=== PATIENT | male | born 1965 | race Hispanic/Latino ===

== ENCOUNTER 2021-08-07 07:47 | Day surgery (SDC) | payer MEDICARE ==
[~2021-08-07 07:47] MED LIST: MIDAZOLAM 2 MG/2 ML INJ IV NR; SODIUM CHLORIDE 0.9% 1000 ML 1,000 ML IV SCH; ceFAZolin/STERILE WATER 2 GM/20 ML SYRINGE IV NR; fentaNYL 100 MCG/2 ML INJ IV PRN
[2021-08-07] MEDS ORDERED: HEPARIN 10,000 UNIT/1 ML VIAL IV NR (08:45)
--- NOTE | 2021-08-07 08:45 | Anesthesia Day of Surgery ---
Anesthesia Day of Surgery - Day of Surgery Patient Examined: Yes Patient H&P Reviewed: Yes Patient is NPO: Yes Beta Blockers: Yes
--- NOTE | 2021-08-07 08:45 | Anesthesia Consultation ---
Anesthesia Consult and Med Hx Date of service: 08/07/21 - Airway Anesthetic Teeth Evaluation: Good ROM Head & Neck: Adequate Mental/Hyoid Distance: Adequate Mallampati Class: Class III Intubation Access Assessment: Possibly Difficult - Pre-Operative Health Status ASA Pre-Surgery Classification: ASA3 Proposed Anesthetic Plan: MAC Nerve Block: supraclavicular - Pulmonary Hx Smoking: Yes (07/08 PPD) Hx Respiratory Symptoms: No Hx Sleep Apnea: No - Cardiovascular System Hx Hypertension: Yes (took all antihypertensives this morning) Hx Heart Attack/AMI: No Hx Percutaneous Transluminal Coronary Angioplasty (PTCA): No Hx Peripheral Vascular Disease: Yes (took ASA/plavix this morning) - Central Nervous System CVA: No - Endocrine Hx End Stage Renal Disease: Yes (last HD 08/06/21) Hx Liver Disease: No Hx Non-Insulin Dependent Diabetes: Yes Hx Hypothyroidism: Yes - Additional Comments Anesthesia Medical History Comments: No hx anesthetic complications.
[2021-08-07 08:46] LABS: Hematocrit 30.7 % (35.5-45.6); Hemoglobin 9.8 gm/dl (11.8-15.2); Mean Corpuscular HGB Conc 32 % (32-34); Mean Corpuscular Volume 91 fl (84-94); Platelet Count 167 K/mm3 (140-440); Red Blood Count 3.39 M/mm3 (3.65-5.03); Red Cell Distribution Width 15.7 % (13.2-15.2)
[2021-08-07 08:58] LABS: Calcium 9.2 mg/dL (8.4-10.2)
[2021-08-07] MEDS ORDERED: BUPIVACAINE/PF (0.25%) 2.5 MG/ML 30 ML VIAL INFILTRATI ONE (09:48)
[2021-08-07] MEDS ORDERED: LIDOCAINE (1%) 10 MG/1 ML VIAL 20 ML MDV ONE (11:43)
[2021-08-07] MEDS ORDERED: HEPARIN 10,000 UNITS/10 ML VIAL ONE (11:43)
[2021-08-07] MEDS ORDERED: rifAMPin 600 MG VIAL ONE (11:43)
[2021-08-07] MEDS ORDERED: BUPIVACAINE/PF (0.5%) 5 MG/1 ML 30 ML VIAL INFILTRATI ONE ×2 (11:43→13:13)
[2021-08-07] MEDS ORDERED: SODIUM CHLORIDE 0.9% 500 ML 500 ML ONE (11:44)
[2021-08-07] MEDS ORDERED: SODIUM CHLORIDE 0.9% 250ML 250 ML ONE (11:44)
[2021-08-07] MEDS ORDERED: HYDROmorphone 1 MG/1 ML INJ ONE (12:05)
[2021-08-07] MEDS ORDERED: propofoL 200 MG/20 ML VIAL IV ONE ×2 (12:05→13:24)
[2021-08-07] MEDS ORDERED: LIDOCAINE MPF (2%) 20 MG/1 ML VIAL 5 ML ONE (12:31)
[2021-08-07] MEDS ORDERED: MIDAZOLAM 2 MG/2 ML INJ ONE (12:32)
[2021-08-07] MEDS ORDERED: SODIUM CHLORIDE 0.9% 250 ML IVPB IV ONE (12:55)
[2021-08-07] MEDS ORDERED: SODIUM CHLORIDE 0.9% IRR 1,500 ML BOTTLE IR ONE (12:55)
[2021-08-07] MEDS ORDERED: rifAMPin 600 MG VIAL IV ONE (12:55)
[2021-08-07] MEDS ORDERED: HEPARIN 10,000 UNITS/10 ML VIAL IV ONE (12:55)
[2021-08-07] MEDS ORDERED: SODIUM CHLORIDE 0.9% 500 ML IVPB IV ONE (12:55)
[2021-08-07] MEDS ORDERED: ONDANSETRON 4 MG/2 ML INJ ONE (14:09)
[2021-08-07] MEDS ORDERED: HEPARIN 10,000 UNIT/1 ML VIAL IV ONE (14:16)
--- NOTE | 2021-08-07 14:21 | Short Stay Summary ---
Short Stay Documentation Date of service: 08/07/21 Narrative H&P: See H&P - History H&P: obtained from office - Allergies and Medications Current Medications: Allergies No Known Allergies Allergy (Verified 08/02/21 11:52) Home Medications Medication Instructions Recorded Confirmed Last Taken Type Clopidogrel [Plavix] 75 mg PO QDAY 08/02/21 08/02/21 Unknown History Famotidine [Acid-Pep] 20 mg PO DAILY 08/02/21 08/02/21 Unknown History Folic Acid/Vit B Complex and C 800 mcg PO DAILY 08/02/21 08/02/21 Unknown History [Dialyvite 800 Chewable Wafer] HYDROcodone/APAP 10-325 [[place] 1 each PO Q6HR PRN 08/02/21 08/02/21 Unknown History 10/325] Levothyroxine [Synthroid] 50 mcg PO QAM 08/02/21 08/02/21 Unknown History Metoprolol [Lopressor] 25 mg PO BID 08/02/21 08/02/21 Unknown History amLODIPine [Norvasc] 10 mg PO DAILY 08/02/21 08/02/21 Unknown History cloNIDine [Catapres] 0.2 mg PO BID 08/02/21 08/02/21 Unknown History hydrALAZINE [Apresoline TAB] 100 mg PO TID 08/02/21 08/02/21 Unknown History Active Medications Cefazolin Sodium (Cefazolin/Sterile Water 2 Gm/20 Ml Syringe) 2 gm IV PREOP NR Stop: 08/07/21 23:00 Fentanyl (Fentanyl 100 Mcg/2 Ml Inj) 100 mcg IV ONCE PRN PRN Reason: sedation for nerve block Last Admin: 08/07/21 11:06 Dose: 100 mcg Heparin Sodium (Porcine) (Heparin 10,000 Unit/1 Ml Vial) 5,000 unit IV ONCE ONE Stop: 08/07/21 14:17 Sodium Chloride (Nacl 0.9% 1000 Ml) 1,000 mls @ 42 mls/hr IV DIRECT JIN Stop: 08/07/21 23:59 Last Admin: 08/07/21 09:14 Dose: 42 mls/hr Midazolam HCl (Midazolam 2 Mg/2 Ml Inj) 2 mg IV PREOP NR Stop: 08/07/21 23:59 Last Admin: 08/07/21 11:06 Dose: 2 mg - Brief post op/procedure progress note Date of procedure: 08/07/21 Pre-op diagnosis: End-Stage Renal Disease Post-op diagnosis: same Procedure: Creation of Left Brachial Artery to Left Axillary Vein Arteriovenous Graft with 7 mm Bovine Artegraft Anesthesia: MAC, regional Surgeon: IVAN TIM Estimated blood loss: minimal Pathology: none Condition: stable - Disposition Condition at discharge: Good Disposition: 01 HOME / SELF CARE / HOMELESS Short Stay Discharge Plan Activity: other (No heavy lifting with left arm for 2 weeks.) Wound: open to air, keep clean and dry, other (Okay to wash the left arm wounds with soap and water but do not soak in water for 2 weeks.) Follow up with: IVAN TIM MD [Staff Physician] - 14 Days Prescriptions: HYDROcodone/APAP 7.5-325 [[place] 7.5/325] 1 each PO Q6HR PRN #30 tablet PRN Reason: Pain
--- NOTE | 2021-08-07 14:22 | Operative Report ---
Operative Report Operative Report: Date of procedure: 08/07/2021 Pre-operative diagnosis: End-Stage Renal Disease Post-operative diagnosis: Same Procedure(s): 1. Creation of Left Brachial Artery to Axillary Vein AV Graft with 5 mm Bovine Graft Artergraft Surgeon: Juanito Waters MD Electrician Locomotive: None Anesthesia: Regional/MAC EBL: Minimal Counts: Correct Complications: None Condition: Stable Findings: Successful Creation of Left Arm AV Graft with Palpable Thrill and Palpable Radial Pulse at the Completion of the Case. Specimen: None Indication: The patient is a 56-year-old male with a history of end-stage renal disease who is currently on hemodialysis through a right internal jugular permacath. He is in need of long-term dialysis access and does not have adequate vein for creation of an arteriovenous fistula so he will require an arteriovenous graft. He is right-hand dominant and the graft will be placed in his left arm. He was given the risk, benefits, and alternative procedures and consented to the procedure. Description of Procedure: Prior to being transported to the operating room the patient had a regional b lock of the left arm performed. After the block was performed the patient was transported to the operating room and adequately sedated. The patient's left arm was then prepped and draped in normal sterile fashion. A longitudinal incision was made on the medial aspect of the arm just proximal to the antecubital crease and carried down to the brachial artery using sharp dissection. The brachial artery was dissected out circumferentially both proximally and distally and controlled with vessel loops. A second incision was created in longitudinal fashion on the medial aspect of the arm just distal to the axillary crease and carried down to the axillary vein using sharp dissection. Axillary vein was dissected out circumferentially and controlled with a vessel loop. I then used a Marylou-Wick tunneler to tunnel from the brachial artery incision to the axillary vein incision and then pulled an 5 mm bovine through the tunnel. I infused with heparinized saline to ensure that it was not twisted or kinked. I put the brachial artery vessel loops on tension controlling the flow and then created an arteriotomy using an 11 blade and Brooks scissors. I beveled the graft and created an end-to-side anastomosis using 6-0 Prolene running fashion. I clamped the graft just proximal to the anastomosis and then released the vessel loops restoring flow in the brachial artery. I placed quick clot in incision to achieve hemostasis. I cut the proximal end of the graft to the appropriate length and beveled the graft in preparation for a venous anastomosis. I controlled the axillary vein a Satinsky clamp and created a venotomy using an 11 blade and Brooks scissors. I created an end to side anastomosis using a 6-0 Prolene in running fashion. Prior to completing the anastomosis I flushed the graft to ensure there was no thrombus and then completed the anastamosis. I released all clamps allowing flow into the AV graft which had an excellent thrill. I packed the wound with quick clot to achieve hemostasis. I closed both wounds in 2 layers using 3-0 Vicryl in running fashion in the deep dermal layer and 4-0 Monocryl in running fashion the subcuticular layer. I dressed both wounds with Dermabond. The patient tolerated the procedure well all sponge, needle, and instrument counts were correct. The patient was taken to recovery in stable condition.
--- NOTE | 2021-08-07 15:30 | Post Anesthesia Evaluation ---
- Post Anesthesia Evaluation Patient Participated: Yes Airway Patent: Yes Stable Respiratory Function: Yes Nausea/Vomiting: No Temp > 96.8F: Yes Pain Manageable: Yes Adequeate Hydration: Yes Anesthesia Complications: No Block Receding Appropriately: Yes Other Comments: Permcath was accessed in preop for lab draw and intravenous access. In PACU, patient reported that he had a bleeding complication 2-3 months ago and that because of this heprain is not used to flush permcath after HD. I discussed with [facility] dialysis center [phone] and confirmed that they do not use heparin in his permcath for this reason. Permcath will be de-accessed and flushed with sterile saline prior to d/c. Patient is scheduled for HD concepcion morning per usual schedule.
[2021-08-07 16:07] VITALS: BP 152/65
== END 2021-08-07 15:45 | disposition home or self-care (01) ==
LOC: OR 07:47
PROVIDERS: ATTEND Surgery Vascular Surgery
DX: I12.0 Hypertensive chronic kidney disease with stage 5 chronic kidney disease or end stage renal disease (principal); E11.22 Type 2 diabetes mellitus with diabetic chronic kidney disease; N18.6 End stage renal disease; E11.51 Type 2 diabetes mellitus with diabetic peripheral angiopathy without gangrene; E78.00 Pure hypercholesterolemia, unspecified; Z20.822 Contact with and (suspected) exposure to COVID-19; F17.210 Nicotine dependence, cigarettes, uncomplicated; I73.9 Peripheral vascular disease, unspecified; K21.9 Gastro-esophageal reflux disease without esophagitis; M19.90 Unspecified osteoarthritis, unspecified site; E03.9 Hypothyroidism, unspecified; Z79.899 Other long term (current) drug therapy; Z98.890 Other specified postprocedural states; Z86.2 Personal history of diseases of the blood and blood-forming organs and certain disorders involving the immune mechanism
CPT/HCPCS: 36415; 36830; 64415; 80048; 82962; 85027; C1768; J0690; J1170; J1644; J2250; J2405; J2704; J3010; J3490; J7030; J7040; J7050; U0003; 64450; J7120; Q0162

== ENCOUNTER 2022-03-06 11:11 | Day surgery (SDC) | payer MEDICARE ==
--- NOTE | 2022-03-06 11:57 | Short Stay Summary ---
Short Stay Documentation Date of service: 03/06/22 - History Principal diagnosis: End-stage renal disease on hemodialysis/malfunctioning graft Past Medical History: dialysis, ESRD Past Surgical History: Other (Left arm brachial to axillary graft) Social history: no significant social history - Allergies and Medications Current Medications: Allergies No Known Allergies Allergy (Verified 08/02/21 11:52) Home Medications Medication Instructions Recorded Confirmed Last Taken Type Clopidogrel [Plavix] 75 mg PO QDAY 08/02/21 08/02/21 Unknown History Famotidine [Acid-Pep] 20 mg PO DAILY 08/02/21 08/02/21 Unknown History Folic Acid/Vit B Complex and C 800 mcg PO DAILY 08/02/21 08/02/21 Unknown History [Dialyvite 800 Chewable Wafer] HYDROcodone/APAP 10-325 [[place] 1 each PO Q6HR PRN 08/02/21 08/02/21 Unknown History 10-325 mg TAB] Levothyroxine [Synthroid] 50 mcg PO QAM 08/02/21 08/02/21 Unknown History Metoprolol [Lopressor TAB] 25 mg PO BID 08/02/21 08/02/21 Unknown History amLODIPine 10 mg PO DAILY 08/02/21 08/02/21 Unknown History cloNIDine [Catapres] 0.2 mg PO BID 08/02/21 08/02/21 Unknown History hydrALAZINE [Apresoline TAB] 100 mg PO TID 08/02/21 08/02/21 Unknown History HYDROcodone/APAP 7.5-325 [[place] 1 each PO Q6HR PRN #30 tablet 08/07/21 Unknown Rx 7.5/325] Active Medications Sodium Chloride (Nacl 0.9% 500 Ml) 500 mls @ 50 mls/hr IV DIRECT JIN - Physical exam General appearance: no acute distress Integumentary: no rash, no growths, other (Ecchymoses bilateral upper extremities) Lungs: Normal air movement Breasts: deferred Gastrointestinal: normal Male Genitourinary: deferred Rectal Exam: deferred - Brief post op/procedure progress note Date of procedure: 03/06/22 Pre-op diagnosis: Malfunctioning dialysis access Post-op diagnosis: same Procedure: Left arm fistulogram, venoplasty Anesthesia: local Surgeon: QUINTEN CASE Estimated blood loss: minimal Pathology: none Condition: stable - Disposition Condition at discharge: Good Disposition: 01 HOME / SELF CARE / HOMELESS Short Stay Discharge Plan Activity: advance as tolerated Weight Bearing Status: Weight Bear as Tolerated Diet: regular Wound: keep clean and dry, per your surgeon's advice Follow up with: CLARKE PRINCE MD [Primary Care Provider] - 7 Days
[2022-03-06] MEDS ORDERED: SODIUM CHLORIDE 0.9% 500 ML 500 ML IV SCH (12:00)
[2022-03-06] MEDS ORDERED: LIDOCAINE (2%) 20 MG/1 ML VIAL 20 ML MDV INFILTRATI ONE (12:47)
[2022-03-06] MEDS ORDERED: MIDAZOLAM 2 MG/2 ML INJ ONE (12:47)
[2022-03-06] MEDS ORDERED: fentaNYL 100 MCG/2 ML INJ ONE (12:48)
[2022-03-06] MEDS ORDERED: SODIUM CHLORIDE 0.9% 500 ML 500 ML ONE (12:48)
[2022-03-06] MEDS ORDERED: HEPARIN/NS 5000 UNIT/500ML 500 ML IR ONE (12:50)
--- NOTE | 2022-03-06 13:24 | Operative Report ---
Operative Report Operative Report: Exam: Left upper arm fistulogram, venoplasty Clinical indication: Patient with a history of left arm brachial axillary AV graft with "pulling clots" Date: 03/06/2022 Procedure: Following an explanation of the risk, benefits and alternatives; written informed consent was obtained. The patient was brought to the angiographic suite and placed in supine position on the examination table. Initial evaluation of the left arm demonstrated a palpable thrill. The patient's left upper arm was prepped and draped in the usual sterile fashion. 2% lidocaine was used for anesthesia. Of the fistula was cannulated towards the venous outflow using a 7 cm 21-gauge needle. 0.018 guidewire was advanced centrally. The needle was removed and using trocar technique, a 7 Spanish sheath placed over the guidewire. The trocar and guidewire were removed. Contrast was injected and imaging obtained of the graft at multiple locations. This demonstrates recurrent 80% stenosis at the venous anastomosis. A 0.035 guidewire was then advanced across the anastomosis. Venoplasty was performed using an 8 mm x 40 mm balloon insufflated to 8 to 10 arely at multiple locations. The balloon was removed. Post angioplasty imaging demonstrated significantly improved flow with reduction of the stenosis to less than 20%. The guidewire was removed. The sheath was removed and hemostasis achieved using 4-0 Vicryl suture and Dermabond. A sterile dressing was applied. The patient tolerated the procedure well. There were no immediate postprocedure complications. Conscious sedation was performed under the guidance of radiologic nursing. Continuous cardiopulmonary monitoring was utilized. Impression: 1) Left upper extremity fistulogram demonstrating 80% venous anastomotic stenosis. 2) Treatment of the venous anastomotic stenosis using venoplasty with reduction of the stenosis to less than 20%
[2022-03-06 14:02] VITALS: BP 160/67
== END 2022-03-06 14:25 | disposition home or self-care (01) ==
LOC: CATHLABREC 11:11
PROVIDERS: ATTEND Radiology Diagnostic Radiology
DX: T82.868A Thrombosis due to vascular prosthetic devices, implants and grafts, initial encounter (principal); I12.0 Hypertensive chronic kidney disease with stage 5 chronic kidney disease or end stage renal disease; E11.22 Type 2 diabetes mellitus with diabetic chronic kidney disease; N18.6 End stage renal disease; K21.9 Gastro-esophageal reflux disease without esophagitis; M19.90 Unspecified osteoarthritis, unspecified site; E03.9 Hypothyroidism, unspecified; D64.9 Anemia, unspecified; F17.210 Nicotine dependence, cigarettes, uncomplicated; Z98.890 Other specified postprocedural states; Z79.899 Other long term (current) drug therapy; Y82.8 Other medical devices associated with adverse incidents; Y92.89 Other specified places as the place of occurrence of the external cause
CPT/HCPCS: 36415; 36902; 84132; 99156; C1725; C1894; J1644; J2250; J3010; J3490; J7040; Q9967